=== PATIENT | male | born 1970 | race Caucasian/White ===

== ENCOUNTER 2017-05-12 05:19 | Observation (INO) | payer OTHER ==
[2017-05-12 05:24] VITALS: BMI 34.0
--- NOTE | 2017-05-12 05:32 | ED PDOC ---
Arrival/HPI - General Chief Complaint: Abdominal Pain Time Seen by Provider: 05/12/17 05:24 Historian: Patient - History of Present Illness Narrative History of Present Illness (Text): 05/12/17 05:31 Aleks Caceres is a 46 year old male who presents to the Emergency department complaining of abdominal pain. Patient states he has been experiencing LLQ pain with associated nausea and vomiting tonight. Patient denies any fever, chills, chest pain, shortness of breath, diarrhea, urinary symptoms, back pain, neck pain, headache, dizziness, or any other complaints. Symptom Onset: Gradual Symptom Course: Unchanged Activities at Onset: Light Context: Home Past Medical History - Provider Review Nursing Documentation Reviewed: Yes - Psychiatric Hx Substance Use: No - Surgical History Hx Abdominal Aortic Aneurysm Repair: No - Anesthesia Hx Anesthesia: No Family/Social History - Physician Review Nursing Documentation Reviewed: Yes Family/Social History: Unknown Family HX Smoking Status: Never Smoked Hx Alcohol Use: No Hx Substance Use: No Allergies/Home Meds Allergies/Adverse Reactions: Allergies No Known Allergies Allergy (Verified 05/12/17 05:29) Home Medications: Home Meds Medication Instructions Recorded Confirmed No Known Home Med 05/12/17 05/12/17 Review of Systems - Physician Review All systems were reviewed & negative as marked: Yes - Review of Systems Constitutional: Normal. absent: Fevers Eyes: Normal ENT: Normal Respiratory: Normal. absent: SOB, Cough Cardiovascular: Normal. absent: Chest Pain Gastrointestinal: Abdominal Pain, Nausea, Vomiting. absent: Diarrhea Genitourinary Male: Normal. absent: Dysuria, Frequency, Hematuria, Urinary Output Changes Musculoskeletal: Normal. absent: Back Pain, Neck Pain Skin: Normal. absent: Rash Neurological: Normal. absent: Headache, Dizziness Endocrine: Normal Hemo/Lymphatic: Normal Psychiatric: Normal Physical Exam Vital Signs Reviewed: Yes Vital Signs Temp Pulse Resp BP Pulse Ox 05/12/17 07:25 68 17 147/83 97 05/12/17 05:24 98.2 F 74 16 157/100 H 100 Temperature: Afebrile Blood Pressure: Normal Pulse: Regular Respiratory Rate: Normal Appearance: Positive for: Well-Appearing, Non-Toxic, Comfortable Pain Distress: None Mental Status: Positive for: Alert and Oriented X 3 - Systems Exam Head: Present: Atraumatic, Normocephalic Pupils: Present: PERRL Extroacular Muscles: Present: EOMI Conjunctiva: Present: Normal Mouth: Present: Moist Mucous Membranes Neck: Present: Normal Range of Motion Respiratory/Chest: Present: Clear to Auscultation, Good Air Exchange. No: Respiratory Distress, Accessory Muscle Use Cardiovascular: Present: Regular Rate and Rhythm, Normal S1, S2. No: Murmurs Abdomen: Present: Normal Bowel Sounds. No: Tenderness, Distention, Peritoneal Signs Back: Present: Normal Inspection Upper Extremity: Present: Normal Inspection. No: Cyanosis, Edema Lower Extremity: Present: Normal Inspection. No: Edema Neurological: Present: GCS=15, CN II-XII Intact, Speech Normal Skin: Present: Warm, Dry, Normal Color. No: Rashes Psychiatric: Present: Alert, Oriented x 3, Normal Insight, Normal Concentration Medical Decision Making ED Course and Treatment: 05/12/17 05:32 Impression: 46 year old male complaining of LLQ pain with nausea and vomiting tonight. Plan: -- CT Abdomen and Pelvis w/o contrast -- EKG -- Labs -- Urinalysis -- IV fluids -- Zofran -- Toradol -- Reassess and disposition Progress Notes: 05/12/17 05:50 reviewed radiology, NSR at [address]-segment elevations or depressions, no T -wave inversions, normal intervals. case d/w dr johnson will see on consult emergency medical tech notified 05/12/17 22:48 - Lab Interpretations Lab Results: 05/12/17 05:35 05/12/17 05:35 Lab Results 05/12/17 05:35: Sodium 141, Potassium 3.7, Chloride 105, Carbon Dioxide 26, Anion Gap 14, BUN 12, Creatinine 0.8, Est GFR ( Amer) > 60, Est GFR (Non- Af Amer) > 60, Random Glucose 166 H, Calcium 8.9, Total Bilirubin 0.6, AST 24, ALT 32, Alkaline Phosphatase 57, Total Protein 6.8, Albumin 4.1, Globulin 2.7, Albumin/Globulin Ratio 1.5 05/12/17 05:35: Urine Color Yellow, Urine Appearance Sl cloudy, Urine pH 6.0, Ur Specific [place] >= 1.030, Urine Protein 30 H, Urine Glucose (UA) Negative, Urine Ketones Negative, Urine Blood Large H, Urine Nitrate Negative, Urine Bilirubin Negative, Urine Urobilinogen 0.2, Ur Leukocyte Esterase Negative, Urine RBC Tntc, Urine WBC 0 - 2, Ur Epithelial Cells 0 - 2, Urine Bacteria Few 05/12/17 05:35: WBC 6.0, RBC 4.57, Hgb 13.3 L, Hct 38.9 L, MCV 85.1, MCH 29.1, MCHC 34.2, RDW 13.6, Plt Count 186, MPV 10.0, Gran % 85.2 H, Lymph % (Auto) 10.0 L, [place] % (Auto) 3.8, Eos % (Auto) 0.8 L, Baso % (Auto) 0.2, Gran # 5.09, Lymph # 0.6 L, [place] # 0.2, Eos # 0.1, Baso # 0.01 I have reviewed the lab results: Yes - RAD Interpretation Radiology Orders: 05/12/17 05:34 ABD & PELVIS W/O PO OR IV CONT [CT] Stat - EKG Interpretation Interpreted by ED Physician: Yes Type: 12 lead EKG - Medication Orders Current Medication Orders: Hydromorphone HCl (Dilaudid) 0.25 mg IVP Q4H PRN PRN Reason: Pain, moderate (4-7) Last Admin: 05/12/17 11:56 Dose: 0.25 mg WADE Pain Assessment Document 05/12/17 11:56 (Rec: 05/12/17 11:56 [place] [id number]) Pain Reassessment Is this a pain reassessment? Yes Sleep Is patient sleeping during reassessment? No Presence of Pain Presence of Pain Yes Pain Scale Used Pain Scale Used Numeric Location Left, Right or Bilateral Left Upper or Lower Lower Pain Location Body Site Abdomen Description Intensity of Pain at present 8 IVP Administration Document 05/12/17 11:56 (Rec: 05/12/17 11:56 [place] [id number]) Charges for Administration # of IVP Administrations 1 Re-Assess: WADE Pain Assessment Document 05/12/17 12:56 (Rec: 05/12/17 14:32 [place] [id number]) Pain Reassessment Is this a pain reassessment? Yes Sleep Is patient sleeping during reassessment? Yes Ceftriaxone Sodium (Rocephin 1 Gram Ivpb) 1 gm in 100 mls @ 100 mls/hr IVPB DAILY JOSI PRN Reason: Protocol Stop: 05/17/17 10:01 Last Admin: 05/12/17 11:05 Dose: 100 mls/hr eMAR Start Stop Document 05/12/17 11:05 Y (Rec: 05/12/17 11:08 [id number]) Intravenous Solution Start Date 05/12/17 Start Time 11:07 End Date 05/12/17 End time 12:07 Total Infusion Time 60 Sodium Chloride (Sodium Chloride 0.9%) 1,000 mls @ 150 mls/hr IV .Q6H40M JOSI Last Admin: 05/12/17 17:12 Dose: 150 mls/hr eMAR Start Stop Document 05/12/17 17:12 Y (Rec: 05/12/17 17:12 [id number] Intravenous Solution Start Date 05/12/17 Start Time 16:15 Insulin Human Regular (Humulin R Low) 0 units SC ACHS JOSI PRN Reason: Protocol Last Admin: 05/12/17 18:04 Dose: Not Given Non-Admin Reason: Blood Sugar Parameter MAR Blood Glucose Document 05/12/17 18:04 Y (Rec: 05/12/17 18:04 [id number]) Blood Glucose Finger Stick Blood Glucose (70-120) 135 Ondansetron HCl (Zofran Inj) 4 mg IVP Q4H PRN PRN Reason: Nausea/Vomiting Discontinued Medications Hydromorphone HCl (Dilaudid) 1 mg IVP STAT STA Stop: 05/12/17 06:54 Last Admin: 05/12/17 07:02 Dose: Sodium Chloride (Sodium Chloride 0.9%) 1,000 mls @ 100 mls/hr IV .Q10H STA Stop: 05/12/17 15:33 Last Admin: 05/12/17 06:18 Dose: 100 mls/hr eMAR Start Stop Document 05/12/17 06:18 RY (Rec: 05/12/17 06:18 RY [id number]) Intravenous Solution Start Date 05/12/17 Start Time 03:45 End Date 05/12/17 End time 04:45 Total Infusion Time 60 Sodium Chloride (Sodium Chloride 0.9%) 1,000 mls @ 150 mls/hr IV .Q6H40M STA Stop: 05/12/17 12:13 Last Admin: 05/12/17 07:55 Dose: 150 mls/hr eMAR Start Stop Document 05/12/17 07:55 IT (Rec: 05/12/17 07:55 IT [id number]) Intravenous Solution Start Date 05/12/17 Start Time 07:55 Ketorolac Tromethamine (Toradol) 30 mg IVP STAT STA Stop: 05/12/17 05:35 Last Admin: 05/12/17 05:45 Dose: 30 mg MAR Pain Assessment Document 05/12/17 05:45 RY (Rec: 05/12/17 06:15 RY [id number]) Pain Reassessment Is this a pain reassessment? No IVP Administration Document 05/12/17 05:45 RY (Rec: 05/12/17 06:15 RY [id number]) Charges for Administration # of IVP Administrations 1 Ketorolac Tromethamine (Toradol) 30 mg IVP ONCE ONE Stop: 05/12/17 06:27 Last Admin: 05/12/17 06:45 Dose: 30 mg MAR Pain Assessment Document 05/12/17 06:45 RY (Rec: 05/12/17 06:45 RY [id number]) Pain Reassessment Is this a pain reassessment? Yes IVP Administration Document 05/12/17 06:45 RY (Rec: 05/12/17 06:45 RY [id number]) Charges for Administration # of IVP Administrations 1 Ondansetron HCl (Zofran Inj) 4 mg IVP STAT STA Stop: 05/12/17 05:35 Last Admin: 05/12/17 05:45 Dose: 4 mg IVP Administration Document 05/12/17 05:45 RY (Rec: 05/12/17 06:15 RY [id number]) Charges for Administration # of IVP Administrations 1 - Scribe Statement The provider has reviewed the documentation as recorded by the Bitaibaura Grullon Provider Scribe Attestation: All medical record entries made by the Scribe were at my direction and personally dictated by me. I have reviewed the chart and agree that the record accurately reflects my personal performance of the history, physical exam, medical decision making, and the department course for this patient. I have also personally directed, reviewed, and agree with the discharge instructions and disposition. Disposition/Present on Arrival - Present on Arrival Any Indicators Present on Arrival: No History of DVT/PE: No History of Uncontrolled Diabetes: No Urinary Catheter: No History of Decub. Ulcer: No History Surgical Site Infection Following: None - Disposition Have Diagnosis and Disposition been Completed?: Yes Diagnosis: Renal colic on left side Disposition: HOSPITALIZED Disposition Time: 06:45 Condition: GOOD
[2017-05-12] MEDS ORDERED: Sodium Chloride 0.9% 1,000 ML IV STA ×2 (05:34→07:49)
[2017-05-12 05:57] LABS: URINE BILIRUBIN NEGATIVE (NEGATIVE); URINE BLOOD LARGE (NEGATIVE); URINE GLUCOSE (UA) NEGATIVE (NEGATIVE); URINE KETONE NEGATIVE (NEGATIVE); URINE LEUKOCYTE ESTERASE NEGATIVE Leu/uL (NEGATIVE); URINE PROTEIN 30 mg/dL (<30 mg/dL); URINE UROBILINOGEN 0.2 E.U./dL (<1 E.U./dL)
[2017-05-12 05:59] LABS: BASO # 0.01 K/mm3 (0.0-2.0); BASO % 0.2 % (0.0-3.0); EOS # 0.1 (0.0-0.7); EOS % 0.8 % (1.5-5.0); GRAN # 5.09 (1.4-6.5); GRAN % 85.2 % (50.0-68.0); HEMATOCRIT 38.9 % (42.0-52.0); LYMPH # 0.6 (1.2-3.4); MEAN CELL VOLUME 85.1 fl (80.0-105.0); MEAN CORPUSCULAR HEMOGLOBIN 29.1 pg (25.0-35.0); MEAN CORPUSCULAR HGB CONC 34.2 g/dl (31.0-37.0); MONO # 0.2 (0.1-0.6); MONO % 3.8 % (1.0-6.0); RED CELL DISTRIBUTION WIDTH 13.6 % (11.5-14.5)
[2017-05-12 06:03] LABS: ALB/GLOB RATIO 1.5 (1.1-1.8); ALKALINE PHOSPHATASE 57 U/L (38-126); ALT/SGPT 32 U/L (7-56); AST/SGOT 24 U/L (17-59); BILIRUBIN,TOTAL 0.6 mg/dL (0.2-1.3); BLOOD UREA NITROGEN 12 mg/dL (7-21); CALCIUM 8.9 mg/dL (8.4-10.5); CARBON DIOXIDE 26 mmol/L (21-33); CHLORIDE 105 mmol/L (98-107); GFR AFRICAN-AMERICAN > 60; GLUCOSE,RANDOM 166 mg/dL (70-110); POTASSIUM 3.7 mmol/L (3.6-5.0); SODIUM 141 mmol/L (132-148); TOTAL PROTEIN 6.8 g/dL (5.8-8.3)
--- NOTE | 2017-05-12 06:18 | CT ---
EXAM: CT Abdomen and Pelvis Without Intravenous Contrast CLINICAL HISTORY: 46 years old, male; Pain; Abdominal pain; Flank; Left; Additional info: Left flank pain TECHNIQUE: Axial computed tomography images of the abdomen and pelvis without intravenous contrast. All CT scans at this facility use one or more dose reduction techniques, viz.: automated exposure control; ma/kV adjustment per patient size (including targeted exams where dose is matched to indication; i.e. head); or iterative reconstruction technique. Coronal and sagittal reformatted images were created and reviewed. COMPARISON: No relevant prior studies available. FINDINGS: Lower thorax: There is minimal bibasilar atelectasis. Tiny hiatal hernia. ABDOMEN: Liver: There are no focal liver lesions present. Gallbladder and bile ducts: The gallbladder is normal. No calcified stones. No ductal dilation. Pancreas: The pancreas is normal. No ductal dilation. Spleen: The spleen is slightly large measuring 13.3 CM anteroposterior. Adrenals: The adrenal glands are normal. Kidneys and ureters: Left kidney demonstrates moderate hydronephrosis and proximal hydroureter to just beyond the UPJ where there is an obstructing 7 mm calculus on series 2, image 80. The right kidney is normal. Incidentally noted is a retroaortic left renal vein. Stomach and bowel: Stomach is partially decompressed and grossly unremarkable. Colonic constipation is present. There is no evidence of intestinal obstruction. No mucosal thickening. Appendix: A normal appendix is identified. PELVIS: Bladder: Bladder is decompressed. No stones. Reproductive: The prostate gland and seminal vesicles are normal. ABDOMEN and PELVIS: Intraperitoneal space: There is no evidence of free intraperitoneal fluid. There is no free intraperitoneal air. Bones/joints: No acute fracture. No dislocation. Soft tissues: There is a tiny fat-containing right inguinal hernia. Vasculature: The aorta is normal. Lymph nodes: There is no evidence of lymphadenopathy. IMPRESSION: Left kidney demonstrates moderate hydronephrosis and proximal hydroureter to just beyond the UPJ where there is an obstructing 7 mm calculus on series 2, image 80.
[2017-05-12 06:25] LABS: URINE APPEARANCE SL CLOUDY (CLEAR); URINE COLOR YELLOW (YELLOW)
[2017-05-12] MEDS ORDERED: HYDROmorphone 2 mg/ml ISec IVP STA (06:53)
[2017-05-12 06:54] LABS: URINE RBC TNTC /hpf (0-2)
[2017-05-12 06:55] LABS: URINE BACTERIA FEW (NEG); URINE EPITHELIAL CELLS 0 - 2 /hpf (0-5); URINE WBC 0 - 2 /hpf (0-6)
[2017-05-12] MEDS ORDERED: HYDROmorphone 1 mg/ml ISec ONE (06:57)
[2017-05-12] MEDS ORDERED: HYDROmorphone 0.5 mg/0.5 ml ISec IVP PRN (07:45)
--- NOTE | 2017-05-12 07:50 | CP.PCM.HP ---
<Keon Martinez - Last Filed: 05/12/17 07:22> History of Present Illness - History of Present Illness History of Present Illness: IM H&P for Hospitalist Service CC: Difuse abdominal pain then left-sided abd pain HPI: This is a 46 yo [place] M with PMH of pre-diabetes who presents with 2 day complaint of darkened urine and ~12 hours of diffuse abdominal pain resolving into L-sided abdominal pain. 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 No dixon hematuria reported. Beginning overnight into today, patient has been experiencing severe abdominal pain, described as sharp and diffuse initially, now sharp and left-sided abdominal/flank pain. Pain severe enough to cause nausea and 2x episodes of emesis (non-bloody non-bilious), although patient reports still able to tolerate PO fluid intake despite the nausea/emesis, and reports pain and nausea are currently well controlled in the ED (s/p Toradol, Dilaudid, and Zofran in the ED). He initially thought the pain might be a collitis, and took some old Augmentin he had at home, with no relief. Also reports that he feels like his urine flow is "slowed," but denies difficulty urinating or oliguria/anuria. Denies chest pain, shortness of breath, diarrhea, dysuria/dixon hematuria, focal weakness/paresthesia. All other ROS in 12-system review were negative. Of note, in the ED CT abd/pelvis was obtained and was notable for 7cc obstruction L-nephrolithiasis with hydronephrosis and mild hydroureter. As per the ED, Urology (Dr. Zavala) is aware of the patient, possible intervention for stone today. PMH: As above PSH: denies SHx: Denies tobacco/alcohol/illicits/IVDA FHx: Diabetes (Father), Peritoneal carcinoma (Father) PMD: None Present on Admission - Present on Admission Any Indicators Present on Admission: No History of DVT/PE: No History of Uncontrolled Diabetes: No Urinary Catheter: No Review of Systems - Review of Systems All systems: reviewed and no additional remarkable complaints except (as per HPI ) Past Patient History - Past Social History Smoking Status: Never Smoked - PSYCHIATRIC Hx Substance Use: No - SURGICAL HISTORY Hx Abdominal Aortic Aneurysm Repair: No - ANESTHESIA Hx Anesthesia: No Meds Allergies/Adverse Reactions: Allergies Allergy/AdvReac Type Severity Reaction Status Date / Time No Known Allergies Allergy Verified 05/12/17 05:29 Physical Exam - Constitutional Appears: Well, Non-toxic, No Acute Distress - Head Exam Head Exam: ATRAUMATIC, NORMAL INSPECTION, NORMOCEPHALIC - Eye Exam Eye Exam: EOMI, Normal appearance. absent: Conjunctival injection, Scleral icterus Pupil Exam: absent: Irregular, Unequal - ENT Exam ENT Exam: Mucous Membranes Moist - Neck Exam Neck exam: Positive for: Full Rom. Negative for: Lymphadenopathy, Thyromegaly - Respiratory Exam Respiratory Exam: Clear to Auscultation Bilateral, NORMAL BREATHING PATTERN. absent: Accessory Muscle Use, Chest Wall Tenderness, Decreased Breath Sounds, Rales, Rhonchi, Wheezes - Cardiovascular Exam Cardiovascular Exam: REGULAR RHYTHM, RRR, +S1, +S2. absent: Bradycardia, Tachycardia, Irregular Rhythm, JVD, +S4 - GI/Abdominal Exam GI & Abdominal Exam: Normal Bowel Sounds, Soft, Tenderness (no tenderness at time of exam, but patient had just recently received dilaudid for pain control; however patient reports sites of pain on exam pre-medication as Left upper and lower quadrants and left flank). absent: Diminished Bowel Sounds, Hyperactive Bowel Sounds, Hypoactive Bowel Sounds - Extremities Exam Extremities exam: Positive for: normal capillary refill, normal inspection, pedal pulses present. Negative for: calf tenderness, pedal edema, tenderness - Back Exam Additional comments: No CVA tenderness, but recently had been given dilaudid for pain, so possibly masking - Neurological Exam Neurological exam: Alert, CN II-XII Intact, Oriented x3 - Psychiatric Exam Psychiatric exam: Normal Affect, Normal Mood - Skin Skin Exam: Dry, Intact, Normal Color, Warm Results - Vital Signs Recent Vital Signs: Last Vital Signs Temp 98.2 F 05/12/17 05:24 Pulse 74 05/12/17 05:24 Resp 16 05/12/17 05:24 BP 157/100 H 05/12/17 05:24 Pulse Ox 100 05/12/17 05:24 - Labs Result Diagrams: 05/12/17 05:35 05/12/17 05:35 Labs: Laboratory Results - last 24 hr 05/12/17 05/12/17 05/12/17 05:35 05:35 05:35 WBC 6.0 RBC 4.57 Hgb 13.3 L Hct 38.9 L MCV 85.1 MCH 29.1 MCHC 34.2 RDW 13.6 Plt Count 186 MPV 10.0 Gran % 85.2 H Lymph % (Auto) 10.0 L [place] % (Auto) 3.8 Eos % (Auto) 0.8 L Baso % (Auto) 0.2 Gran # 5.09 Lymph # 0.6 L [place] # 0.2 Eos # 0.1 Baso # 0.01 Sodium 141 Potassium 3.7 Chloride 105 Carbon Dioxide 26 Anion Gap 14 BUN 12 Creatinine 0.8 Est GFR ( Amer) > 60 Est GFR (Non-Af Amer) > 60 Random Glucose 166 H Calcium 8.9 Total Bilirubin 0.6 AST 24 ALT 32 Alkaline Phosphatase 57 Total Protein 6.8 Albumin 4.1 Globulin 2.7 Albumin/Globulin Ratio 1.5 Urine Color Yellow Urine Appearance Sl cloudy Urine pH 6.0 Ur Specific [place] >= 1.030 Urine Protein 30 H Urine Glucose (UA) Negative Urine Ketones Negative Urine Blood Large H Urine Nitrate Negative Urine Bilirubin Negative Urine Urobilinogen 0.2 Ur Leukocyte Esterase Negative Urine RBC Tntc Urine WBC 0 - 2 Ur Epithelial Cells 0 - 2 Urine Bacteria Few Assessment & Plan - Assessment and Plan (Free Text) Assessment: This is a 46 yo [place] M with PMH of pre-diabetes who presents with 2 day complaint of darkened urine and ~12 hours of diffuse abdominal pain resolving into L-sided abdominal pain. He is being admitted for observation and possible Urology intervention for L-sided nephrolithiasis found on CT abd/pelvis. Plan: 1) Left-sided abdominal pain with nausea/emesis -Nephrolithiasis vs collitis vs diverticulitis -Attempted to self-manage suspected collitis with home Augmentin, no relief -CT abd/pelvis in ED notable for obstruction left-nephrolithiasis, 7mm; no signs of collitis or diverticulosis on CT -Nausea and emesis likely 2/2 nephrolithiasis and/or pain associated with stone ; currently controlled with pain management and Zofran -No apparent pyelonephritis, afebrile and no leukocytosis on labs, UA most notable for blood and TNTC RBCs, but given pending possible procedure and known stone, will empirically cover with rocephin 1g daily x5 days -Urology (Dr. Zavala) aware, pending possible procedure (removal vs stent) today -NPO for possible procedure, NS 150cc/hr for hydration -Dilaudid 0.25mg IV q4 PRN for pain control, Zofran 4mg IVP q4 PRN for nausea emesis -EKG in ED obtained, NSR in 60's with normal intervals and segments; Denies cardiac or smoking hx, low risk for procedure 2) Reported hx of prediabetes -glucose on admission 166 -low dose sliding scale lispro -will obtain A1c, f/u Dispo: Med/Surg obs, pending possible procedure by Urology for L-nephrolithiasis FEN: NPO for possible procedure, NS IVF 150cc/hr Access: Peripheral IV Consults: Urology Ppx: Protonix for GI, SCDs for DVT (Avoid AC pending possible procedure) Patient seen, reviewed, and discussed with attending, Dr. Moreno. Decision To Admit - Pt Status Changed To: Hospital Disposition Of: Observation - . Bed Request Type: Med/Surg <Deni Moreno A - Last Filed: 05/12/17 10:19> Results - Vital Signs Recent Vital Signs: Last Vital Signs Temp 98.2 F 05/12/17 08:43 Pulse 82 05/12/17 08:43 Resp 17 05/12/17 08:43 BP 140/82 05/12/17 08:43 Pulse Ox 98 05/12/17 08:43 - Labs Result Diagrams: 05/12/17 05:35 05/12/17 05:35 Attending/Attestation - Attestation I have personally seen and examined this patient.: Yes I have fully participated in the care of the patient.: Yes I have reviewed all pertinent clinical information: Yes Notes (Text): 05/12/17 10:08 46 year old male with past medical history of pre-diabetes who presents with complaint of hematuria and left sided flank / abdominal pain. CT abd/pelvis showed 7mm obstructing calculus with moderate hydronephrosis and proximal hydroureter. UA + for hematuria. Continue with NPO, IV fluids, analgesics, antiemetics and antibiotics. Urology evaluation requested for possible urologic procedure. Continue with insulin ss and will obtain A1c level for history of prediabetes. Deni Moreno MD Hospitalist.
--- NOTE | 2017-05-12 10:15 | CARD ---
APPROVED REPORT EKG Measurement Heart Cioy14ANUS LA 164P1 [id number] <Conclusion> Normal sinus rhythm Normal ECG
[2017-05-12] MEDS: cefTRIAXone 1 gm 1 GM/100 ML BAG IVPB SCH (11:05)
[2017-05-12] MEDS: Sodium Chloride 0.9% 1,000 ML IV SCH ×2 (17:12→22:49)
[2017-05-12] MEDS: Insulin Reg-LOW-Coverage SC SCH (18:04)
--- NOTE | 2017-05-12 21:30 | PCM.URO ---
Urology Progress Note - Objective Lab Studies: Reviewed (possible passed stone/ no pain currently/ may try out pt follow up thank you for gu consult /) Lab Results Last 24 Hours: Laboratory Results - last 24 hr 05/12/17 05/12/17 15:45 16:12 POC Glucose (mg/dL) 135 H Troponin I < 0.01 Intake & Output: Intake & Output 05/12/17 05/12/17 05/13/17 06:59 18:59 06:59 Output Total 300 Balance -300 Output: Urine 300 Urine, Voided 300 Stool 0 Other: # Voids Urine, Voided 2 Vital Signs: Vital Signs - 24 hr 05/12/17 05/12/17 05/12/17 07:25 08:43 12:58 Temperature 98.2 F Pulse Rate 68 82 Respiratory 17 17 16 Rate Blood Pressure 147/83 140/82 O2 Sat by Pulse 97 98 Oximetry 05/12/17 16:00 Temperature 98.3 F Pulse Rate 72 Respiratory 18 Rate Blood Pressure 133/85 O2 Sat by Pulse 98 Oximetry
[2017-05-13 03:24] LABS: BLOOD UREA NITROGEN 9 mg/dL (7-21); CALCIUM 7.9 mg/dL (8.4-10.5); CARBON DIOXIDE 26 mmol/L (21-33); CHLORIDE 109 mmol/L (98-107); GFR AFRICAN-AMERICAN > 60; GLUCOSE,RANDOM 106 mg/dL (70-110); POTASSIUM 3.5 mmol/L (3.6-5.0); SODIUM 142 mmol/L (132-148)
[2017-05-13 03:35] LABS: HEMATOCRIT 34.5 % (42.0-52.0); MEAN CELL VOLUME 85.8 fl (80.0-105.0); MEAN CORPUSCULAR HEMOGLOBIN 29.4 pg (25.0-35.0); MEAN CORPUSCULAR HGB CONC 34.2 g/dl (31.0-37.0); MEAN PLATELET VOLUME 9.8 fl (7.0-11.0); RED CELL DISTRIBUTION WIDTH 13.9 % (11.5-14.5); WHITE BLOOD COUNT 4.5 10^3/ul (4.5-11.0)
[2017-05-13 04:54] LABS: TROPONIN I < 0.01 ng/mL
[2017-05-13] MEDS: Sodium Chloride 0.9% 1,000 ML IV SCH (05:35)
[2017-05-13 05:46] VITALS: RESP 20; O2SAT 97
[2017-05-13 08:01] VITALS: BP 110/69; PULSE 75; TEMP 98.7
[2017-05-13] MEDS: Insulin Reg-LOW-Coverage SC SCH ×2 (08:08→11:00)
--- NOTE | 2017-05-13 08:34 | RAD ---
HISTORY: Kidney stone COMPARISON: CT of the abdomen 05/12/2017 FINDINGS: BOWEL: Normal. No obstruction. No free air. BONES: Normal. OTHER FINDINGS: None. IMPRESSION: 5 mm stone in the proximal UVJ is visible on plain film
[2017-05-13] MEDS ORDERED: Potassium Chloride 20 mEq ER Tab PO STA (09:13)
[2017-05-13] MEDS ORDERED: Potassium Chloride 20 mEq ER Tab PO ONE (09:13)
[2017-05-13] MEDS: cefTRIAXone 1 gm 1 GM/100 ML BAG IVPB SCH (11:01)
--- NOTE | 2017-05-13 15:26 | CP.PCM.DIS ---
<Bethel Richmond - Last Filed: 05/14/17 14:01> Provider - Provider Date of Admission: 05/12/17 06:48 Attending physician: Anshul Abel MD Primary care physician: None Consults: Urology: Dr. Cheney Time Spent in preparation of Discharge (in minutes): 25 Diagnosis - Discharge Diagnosis (1) Renal colic on left side Status: Acute Hospital Course - Lab Results Lab Results: Most Recent Lab Values WBC 4.5 10^3/ul (4.5-11.0) D 05/13/17 03:00 RBC 4.02 10^6/uL (3.5-6.1) 05/13/17 03:00 Hgb 11.8 g/dL (14.0-18.0) L 05/13/17 03:00 Hct 34.5 % (42.0-52.0) L 05/13/17 03:00 MCV 85.8 fl (80.0-105.0) 05/13/17 03:00 MCH 29.4 pg (25.0-35.0) 05/13/17 03:00 MCHC 34.2 g/dl (31.0-37.0) 05/13/17 03:00 RDW 13.9 % (11.5-14.5) 05/13/17 03:00 Plt Count 164 10^3/uL (120.0-450.0) 05/13/17 03:00 MPV 9.8 fl (7.0-11.0) 05/13/17 03:00 Gran % 85.2 % (50.0-68.0) H 05/12/17 05:35 Lymph % (Auto) 10.0 % (22.0-35.0) L 05/12/17 05:35 [place] % (Auto) 3.8 % (1.0-6.0) 05/12/17 05:35 Eos % (Auto) 0.8 % (1.5-5.0) L 05/12/17 05:35 Baso % (Auto) 0.2 % (0.0-3.0) 05/12/17 05:35 Gran # 5.09 (1.4-6.5) 05/12/17 05:35 Lymph # 0.6 (1.2-3.4) L 05/12/17 05:35 [place] # 0.2 (0.1-0.6) 05/12/17 05:35 Eos # 0.1 (0.0-0.7) 05/12/17 05:35 Baso # 0.01 K/mm3 (0.0-2.0) 05/12/17 05:35 Sodium 142 mmol/L (132-148) 05/13/17 03:00 Potassium 3.5 mmol/L (3.6-5.0) L 05/13/17 03:00 Chloride 109 mmol/L (98-107) H 05/13/17 03:00 Carbon Dioxide 26 mmol/L (21-33) 05/13/17 03:00 Anion Gap 11 (10-20) 05/13/17 03:00 BUN 9 mg/dL (7-21) 05/13/17 03:00 Creatinine 0.8 mg/dL (0.8-1.5) 05/13/17 03:00 Est GFR ( Amer) > 60 05/13/17 03:00 Est GFR (Non-Af Amer) > 60 05/13/17 03:00 POC Glucose (mg/dL) 108 mg/dL (65-110) 05/13/17 07:03 Random Glucose 106 mg/dL (70-110) 05/13/17 03:00 Hemoglobin A1c 5.7 % (4.2-6.5) 05/12/17 13:35 Calcium 7.9 mg/dL (8.4-10.5) L 05/13/17 03:00 Total Bilirubin 0.6 mg/dL (0.2-1.3) 05/12/17 05:35 AST 24 U/L (17-59) 05/12/17 05:35 ALT 32 U/L (7-56) 05/12/17 05:35 Alkaline Phosphatase 57 U/L (38-126) 05/12/17 05:35 Troponin I < 0.01 ng/mL 05/13/17 03:00 Total Protein 6.8 g/dL (5.8-8.3) 05/12/17 05:35 Albumin 4.1 g/dL (3.0-4.8) 05/12/17 05:35 Globulin 2.7 gm/dL 05/12/17 05:35 Albumin/Globulin Ratio 1.5 (1.1-1.8) 05/12/17 05:35 Urine Color Yellow (YELLOW) 05/12/17 05:35 Urine Appearance Sl cloudy (CLEAR) 05/12/17 05:35 Urine pH 6.0 (4.7-8.0) 05/12/17 05:35 Ur Specific [place] >= 1.030 (1.005-1.035) 05/12/17 05:35 Urine Protein 30 mg/dL (<30 mg/dL) H 05/12/17 05:35 Urine Glucose (UA) Negative mg/dL (NEGATIVE) 05/12/17 05:35 Urine Ketones Negative mg/dL (NEGATIVE) 05/12/17 05:35 Urine Blood Large (NEGATIVE) H 05/12/17 05:35 Urine Nitrate Negative (NEGATIVE) 05/12/17 05:35 Urine Bilirubin Negative (NEGATIVE) 05/12/17 05:35 Urine Urobilinogen 0.2 E.U./dL (<1 E.U./dL) 05/12/17 05:35 Ur Leukocyte Esterase Negative Robert/uL (NEGATIVE) 05/12/17 05:35 Urine RBC Tntc /hpf (0-2) 05/12/17 05:35 Urine WBC 0 - 2 /hpf (0-6) 05/12/17 05:35 Ur Epithelial Cells 0 - 2 /hpf (0-5) 05/12/17 05:35 Urine Bacteria Few (NEG) 05/12/17 05:35 - Hospital Course Hospital Course: Patient is a 46 year old Spanish male with past medical history of pre-diabetes who presented with a two day history of darkened urine and left sided abdominal pain. The patient was evaluated in the ED and abdomen and pelvis CT was done showing left renal hydronephrosis and proximal hydroureter to just beyond the UPJ with an obstructing 7mm calculus. Dr.Elliot Cheney with urology was consulted and evaluated the patient. The patient was hydrated and given appropriate pain management. After initiation of treatment the patient was noted to have diminishment of his left sided abdominal discomfort as well as urinary complaints. It was proposed by urology that the patient had passed the stone from the UVJ and was advised to follow up outpatient. The patient was evaluated and found to have been hemodynamically stable and appropriate for discharge with outpatient follow up with the [facility] clinic and Urology with Dr. Cheney. - Date & Time of H&P Date of H&P: 05/12/17 Time of H&P: 07:22 Discharge Exam - Head Exam Head Exam: ATRAUMATIC, NORMAL INSPECTION, NORMOCEPHALIC - Eye Exam Eye Exam: EOMI, PERRL - Respiratory Exam Respiratory Exam: Clear to PA & Lateral, NORMAL BREATHING PATTERN - Cardiovascular Exam Cardiovascular Exam: REGULAR RHYTHM, RRR, +S1, +S2. absent: Rubs, Systolic Murmur - GI/Abdominal Exam GI & Abdominal Exam: Normal Bowel Sounds, Tenderness (mild left lower quadrant, clinically improved from admission), Unremarkable. absent: Distended, Guarding , Rigid - Extremities Exam Extremities exam: full ROM, normal inspection - Back Exam Back exam: NORMAL INSPECTION - Neurological Exam Neurological exam: Alert, CN II-XII Intact, Normal Gait, Oriented x3 - Psychiatric Exam Psychiatric exam: Normal Affect, Normal Mood - Skin Skin Exam: Dry, Intact, Normal Color, Warm Discharge Plan - Discharge Medications Prescriptions: Tamsulosin [Flomax] 0.4 mg PO DAILY 14 Days #14 cap - Follow Up Plan Condition: GOOD Disposition: HOME/ ROUTINE Instructions: Kidney Stones (DC), Renal Colic (GEN), Basic Carbohydrate Counting (DC), Prediabetes (DC) Additional Instructions: 1. Follow up with [facility] clinic for PMD follow up and established care 2. Follow up with Urologist Dr. Cheney within one week 3. Take medications as prescribed to you 4. Return to the ED if your symptoms worsen or return 5. Keep hydrated by drinking at least 2 Liters of fluid daily Referrals: Edson Cheney MD [Staff Provider] - <Anshul Abel - Last Filed: 05/14/17 14:31> Provider - Provider Date of Admission: 05/12/17 06:48 Attending physician: Anshul Abel MD Hospital Course - Lab Results Lab Results: Most Recent Lab Values WBC 4.5 10^3/ul (4.5-11.0) D 05/13/17 03:00 RBC 4.02 10^6/uL (3.5-6.1) 05/13/17 03:00 Hgb 11.8 g/dL (14.0-18.0) L 05/13/17 03:00 Hct 34.5 % (42.0-52.0) L 05/13/17 03:00 MCV 85.8 fl (80.0-105.0) 05/13/17 03:00 MCH 29.4 pg (25.0-35.0) 05/13/17 03:00 MCHC 34.2 g/dl (31.0-37.0) 05/13/17 03:00 RDW 13.9 % (11.5-14.5) 05/13/17 03:00 Plt Count 164 10^3/uL (120.0-450.0) 05/13/17 03:00 MPV 9.8 fl (7.0-11.0) 05/13/17 03:00 Gran % 85.2 % (50.0-68.0) H 05/12/17 05:35 Lymph % (Auto) 10.0 % (22.0-35.0) L 05/12/17 05:35 [place] % (Auto) 3.8 % (1.0-6.0) 05/12/17 05:35 Eos % (Auto) 0.8 % (1.5-5.0) L 05/12/17 05:35 Baso % (Auto) 0.2 % (0.0-3.0) 05/12/17 05:35 Gran # 5.09 (1.4-6.5) 05/12/17 05:35 Lymph # 0.6 (1.2-3.4) L 05/12/17 05:35 [place] # 0.2 (0.1-0.6) 05/12/17 05:35 Eos # 0.1 (0.0-0.7) 05/12/17 05:35 Baso # 0.01 K/mm3 (0.0-2.0) 05/12/17 05:35 Sodium 142 mmol/L (132-148) 05/13/17 03:00 Potassium 3.5 mmol/L (3.6-5.0) L 05/13/17 03:00 Chloride 109 mmol/L (98-107) H 05/13/17 03:00 Carbon Dioxide 26 mmol/L (21-33) 05/13/17 03:00 Anion Gap 11 (10-20) 05/13/17 03:00 BUN 9 mg/dL (7-21) 05/13/17 03:00 Creatinine 0.8 mg/dL (0.8-1.5) 05/13/17 03:00 Est GFR ( Amer) > 60 05/13/17 03:00 Est GFR (Non-Af Amer) > 60 05/13/17 03:00 POC Glucose (mg/dL) 108 mg/dL (65-110) 05/13/17 07:03 Random Glucose 106 mg/dL (70-110) 05/13/17 03:00 Hemoglobin A1c 5.7 % (4.2-6.5) 05/12/17 13:35 Calcium 7.9 mg/dL (8.4-10.5) L 05/13/17 03:00 Total Bilirubin 0.6 mg/dL (0.2-1.3) 05/12/17 05:35 AST 24 U/L (17-59) 05/12/17 05:35 ALT 32 U/L (7-56) 05/12/17 05:35 Alkaline Phosphatase 57 U/L (38-126) 05/12/17 05:35 Troponin I < 0.01 ng/mL 05/13/17 03:00 Total Protein 6.8 g/dL (5.8-8.3) 05/12/17 05:35 Albumin 4.1 g/dL (3.0-4.8) 05/12/17 05:35 Globulin 2.7 gm/dL 05/12/17 05:35 Albumin/Globulin Ratio 1.5 (1.1-1.8) 05/12/17 05:35 Urine Color Yellow (YELLOW) 05/12/17 05:35 Urine Appearance Sl cloudy (CLEAR) 05/12/17 05:35 Urine pH 6.0 (4.7-8.0) 05/12/17 05:35 Ur Specific [place] >= 1.030 (1.005-1.035) 05/12/17 05:35 Urine Protein 30 mg/dL (<30 mg/dL) H 05/12/17 05:35 Urine Glucose (UA) Negative mg/dL (NEGATIVE) 05/12/17 05:35 Urine Ketones Negative mg/dL (NEGATIVE) 05/12/17 05:35 Urine Blood Large (NEGATIVE) H 05/12/17 05:35 Urine Nitrate Negative (NEGATIVE) 05/12/17 05:35 Urine Bilirubin Negative (NEGATIVE) 05/12/17 05:35 Urine Urobilinogen 0.2 E.U./dL (<1 E.U./dL) 05/12/17 05:35 Ur Leukocyte Esterase Negative Robert/uL (NEGATIVE) 05/12/17 05:35 Urine RBC Tntc /hpf (0-2) 05/12/17 05:35 Urine WBC 0 - 2 /hpf (0-6) 05/12/17 05:35 Ur Epithelial Cells 0 - 2 /hpf (0-5) 05/12/17 05:35 Urine Bacteria Few (NEG) 05/12/17 05:35 Attending/Attestation - Attestation I have personally seen and examined this patient.: Yes I have fully participated in the care of the patient.: Yes I have reviewed all pertinent clinical information, including history, physical exam and plan: Yes Notes (Text): 05/14/17 14:31 Patient was seen and examined with medical laboratory manager. Agreed with resident assessment and plan. Management plan was discussed in detail with patient Education was provided.
== END 2017-05-13 14:13 | disposition home or self-care (01) ==
LOC: ED 05:19 → ERH 06:48 → 5RNO 08:37
PROVIDERS: ADMIT Hospitalist; ATTEND Internal Medicine
DX: N13.2 Hydronephrosis with renal and ureteral calculous obstruction (principal); R73.03 Prediabetes
CPT/HCPCS: 36415; 74022; 74176; 80048; 80053; 81001; 82948; 83036; 84484; 85025; 85027; 93005; 96361; 96365; 96375; 96376; 99282; G0378; J0696; J1170; J1885; J2405; J7040

== ENCOUNTER 2017-05-15 14:00 | Day surgery (SDC) | payer OTHER ==
[2017-05-15] MEDS ORDERED: Sodium Chloride 0.9% 1,000 ML IV STA (15:46)
[2017-05-15 16:22] LABS: BASO # 0.01 K/mm3 (0.0-2.0); BASO % 0.2 % (0.0-3.0); EOS # 0.1 (0.0-0.7); EOS % 0.8 % (1.5-5.0); GRAN # 4.85 (1.4-6.5); GRAN % 80.6 % (50.0-68.0); LYMPH # 0.7 (1.2-3.4); LYMPH % 11.8 % (22.0-35.0); MEAN CELL VOLUME 85.4 fl (80.0-105.0); MEAN CORPUSCULAR HEMOGLOBIN 29.9 pg (25.0-35.0); MEAN PLATELET VOLUME 9.7 fl (7.0-11.0); MONO # 0.4 (0.1-0.6); MONO % 6.6 % (1.0-6.0); RED CELL DISTRIBUTION WIDTH 13.7 % (11.5-14.5); URINE BILIRUBIN NEGATIVE (NEGATIVE); URINE BLOOD LARGE (NEGATIVE); URINE GLUCOSE (UA) NEGATIVE (NEGATIVE); URINE KETONE NEGATIVE (NEGATIVE); URINE LEUKOCYTE ESTERASE NEGATIVE Leu/uL (NEGATIVE); URINE PROTEIN NEGATIVE mg/dL (<30 mg/dL); URINE UROBILINOGEN 0.2 E.U./dL (<1 E.U./dL)
[2017-05-15 16:25] LABS: URINE APPEARANCE SL CLOUDY (CLEAR); URINE COLOR YELLOW (YELLOW)
[2017-05-15 16:33] LABS: URINE BACTERIA FEW (NEG)
[2017-05-15 16:49] LABS: ALB/GLOB RATIO 1.4 (1.1-1.8); ALKALINE PHOSPHATASE 62 U/L (38-126); ALT/SGPT 31 U/L (7-56); AST/SGOT 27 U/L (17-59); BILIRUBIN,TOTAL 0.9 mg/dL (0.2-1.3); BLOOD UREA NITROGEN 13 mg/dL (7-21); CALCIUM 9.7 mg/dL (8.4-10.5); CARBON DIOXIDE 26 mmol/L (21-33); CHLORIDE 103 mmol/L (98-107); GFR AFRICAN-AMERICAN > 60; GLUCOSE,RANDOM 125 mg/dL (70-110); LIPASE 51 U/L (23-300); MAGNESIUM 1.9 mg/dL (1.7-2.2); SODIUM 138 mmol/L (132-148); TOTAL PROTEIN 7.5 g/dL (5.8-8.3)
--- NOTE | 2017-05-15 17:04 | ED PDOC ---
Arrival/HPI - General Chief Complaint: Back Pain Time Seen by Provider: 05/15/17 15:13 Historian: Patient - History of Present Illness Narrative History of Present Illness (Text): 05/15/17 16:58 A 46 year old male presents to the emergency department complaining of recurrent left sided abdominal pain. Patient was seen on 05/12/17 for left sided abdominal/flank pain and found to have a 7mm obstructive ureteral stone. Patient was hospitalized and discharged since his pain resolved. He was evaluated by Dr. Cheney and instructed to follow up outpatient. But the patient returned instead, currently complaining of left sided abdominal pain with a stinging urinary sensation. Patient continues to take flomax but no pain medication. Patient denies any fever, chills, nausea, vomiting, chest pain, shortness of breath or any other complaints. Time/Duration: Prior to Arrival Symptom Course: Unchanged Quality: Other Context: Other Past Medical History - Provider Review Nursing Documentation Reviewed: Yes - Reproductive Currently : No - Cardiac Hx Cardiac Disorders: No - Pulmonary Hx Respiratory Disorders: No - Neurological Hx Neurological Disorder: No - HEENT Hx HEENT Disorder: No - Renal Hx Renal Disorder: Yes Hx Kidney Stones: Yes - Endocrine/Metabolic Hx Endocrine Disorders: No - Hematological/Oncological Hx Blood Disorders: No - Integumentary Hx Dermatological Disorder: No - Musculoskeletal/Rheumatological Hx Musculoskeletal Disorders: No Hx Falls: No - Gastrointestinal Hx Gastrointestinal Disorders: No - Genitourinary/Gynecological Hx Genitourinary Disorders: No - Psychiatric Hx Psychophysiologic Disorder: No Hx Substance Use: No - Surgical History Hx Abdominal Aortic Aneurysm Repair: No - Anesthesia Hx Anesthesia: No Family/Social History - Physician Review Nursing Documentation Reviewed: Yes Family/Social History: No Known Family HX Smoking Status: Never Smoked Hx Alcohol Use: No Hx Substance Use: No Allergies/Home Meds Allergies/Adverse Reactions: Allergies No Known Allergies Allergy (Verified 05/15/17 14:14) Review of Systems - Physician Review All systems were reviewed & negative as marked: Yes - Review of Systems Constitutional: absent: Fevers, Night Sweats Respiratory: absent: SOB Cardiovascular: absent: Chest Pain Gastrointestinal: Abdominal Pain. absent: Nausea, Vomiting Genitourinary Male: Dysuria (stinging sensation) Physical Exam Vital Signs Reviewed: Yes Vital Signs Temp Pulse Resp BP Pulse Ox 05/15/17 16:16 65 18 135/79 99 05/15/17 14:11 98.1 F 67 16 138/85 99 Temperature: Afebrile Blood Pressure: Normal Pulse: Regular Respiratory Rate: Normal Appearance: Positive for: Well-Appearing, Non-Toxic, Comfortable Pain Distress: None Mental Status: Positive for: Alert and Oriented X 3 - Systems Exam Head: Present: Atraumatic, Normocephalic Pupils: Present: PERRL Conjunctiva: Present: Normal Mouth: Present: Moist Mucous Membranes Pharnyx: Present: Normal. No: ERYTHEMA, EXUDATE Neck: Present: Normal Range of Motion Respiratory/Chest: Present: Clear to Auscultation, Good Air Exchange. No: Respiratory Distress, Accessory Muscle Use Cardiovascular: Present: Regular Rate and Rhythm, Normal S1, S2. No: Murmurs Abdomen: Present: Tenderness (Mild lateral LLQ tenderness ), Normal Bowel Sounds. No: Distention, Peritoneal Signs, Rebound, Guarding Back: Present: Normal Inspection. No: CVA Tenderness Upper Extremity: Present: Normal Inspection, NORMAL PULSES. No: Cyanosis, Edema Lower Extremity: Present: Normal Inspection, NORMAL PULSES. No: Edema, CALF TENDERNESS Neurological: Present: GCS=15, CN II-XII Intact, Speech Normal Skin: Present: Warm, Dry, Normal Color. No: Rashes Psychiatric: Present: Alert, Oriented x 3, Normal Insight, Normal Concentration Medical Decision Making ED Course and Treatment: 05/15/17 16:58 Impression: A 46 year old male with left sided abdominal pain and dysuria with known L side ureteral stone Plan: -- Labs -- Urinalysis -- Toradol and IV fluids -- Reassess and disposition Progress Notes: 05/15/17 17:38 Patient with noted history; case was discussed with Dr. Cheney who advised the patient be kept NPO with a plan for a ureteral stent. - Lab Interpretations Lab Results: 05/15/17 16:10 05/15/17 16:10 Lab Results 05/15/17 16:10: Sodium 138, Potassium 4.0, Chloride 103, Carbon Dioxide 26, Anion Gap 13, BUN 13, Creatinine 0.7 L, Est GFR ( Amer) > 60, Est GFR ( Non-Af Amer) > 60, Random Glucose 125 H, Calcium 9.7, Magnesium 1.9, Total Bilirubin 0.9, AST 27, ALT 31, Alkaline Phosphatase 62, Total Protein 7.5, Albumin 4.4, Globulin 3.1, Albumin/Globulin Ratio 1.4, Lipase 51 05/15/17 16:10: Urine Color Yellow, Urine Appearance Sl cloudy, Urine pH 6.0, Ur Specific [place] <= 1.005, Urine Protein Negative, Urine Glucose (UA) Negative, Urine Ketones Negative, Urine Blood Large H, Urine Nitrate Negative, Urine Bilirubin Negative, Urine Urobilinogen 0.2, Ur Leukocyte Esterase Negative , Urine RBC 2 - 5, Urine WBC 1 - 3, Ur Epithelial Cells 3 - 4, Urine Bacteria Few 05/15/17 16:10: WBC 6.0 D, RBC 4.92, Hgb 14.7 D, Hct 42.0, MCV 85.4, MCH 29.9 , MCHC 35.0, RDW 13.7, Plt Count 202, MPV 9.7, Gran % 80.6 H, Lymph % (Auto) 11.8 L, [place] % (Auto) 6.6 H, Eos % (Auto) 0.8 L, Baso % (Auto) 0.2, Gran # 4.85 , Lymph # 0.7 L, [place] # 0.4, Eos # 0.1, Baso # 0.01 05/15/17 15:55: PT 12.0, INR 1.10 H, APTT 29.0 I have reviewed the lab results: Yes - Medication Orders Current Medication Orders: Discontinued Medications Sodium Chloride (Sodium Chloride 0.9%) 1,000 mls @ 999 mls/hr IV .Q1H1M STA Stop: 05/15/17 16:46 Last Admin: 05/15/17 15:58 Dose: 999 mls/hr eMAR Start Stop Document 05/15/17 15:58 SF (Rec: 05/15/17 15:58 SF [facility] [id number]) Intravenous Solution Start Date 05/15/17 Start Time 15:58 End Date 05/15/17 End time 16:59 Total Infusion Time 61 Ketorolac Tromethamine (Toradol) 30 mg IVP STAT STA Stop: 05/15/17 15:47 Last Admin: 05/15/17 16:12 Dose: 30 mg MAR Pain Assessment Document 05/15/17 16:12 SF (Rec: 05/15/17 16:12 SF [facility] [id number]) Pain Reassessment Is this a pain reassessment? Yes Sleep Is patient sleeping during reassessment? No Presence of Pain Presence of Pain Yes IVP Administration Document 05/15/17 16:12 SF (Rec: 05/15/17 16:12 SF [facility] [id number]) Charges for Administration # of IVP Administrations 1 - Scribe Statement The provider has reviewed the documentation as recorded by the Scribe Kerry Apple Provider Scribe Attestation: All medical record entries made by the Scribe were at my direction and personally dictated by me. I have reviewed the chart and agree that the record accurately reflects my personal performance of the history, physical exam, medical decision making, and the department course for this patient. I have also personally directed, reviewed, and agree with the discharge instructions and disposition. Disposition/Present on Arrival - Present on Arrival Any Indicators Present on Arrival: No History of DVT/PE: No History of Uncontrolled Diabetes: No Urinary Catheter: No History of Decub. Ulcer: No History Surgical Site Infection Following: None - Disposition Have Diagnosis and Disposition been Completed?: Yes Diagnosis: Left ureteral calculus Disposition: HOSPITALIZED Disposition Time: 16:45 Patient Plan: Other (same day surgery) Condition: STABLE
[2017-05-15 17:07] LABS: INR 1.1 (0.93-1.08)
[2017-05-15] MEDS ORDERED: cefTRIAXone (Rocephin) 1 gm Inj ONE (17:28)
[2017-05-15] MEDS ORDERED: Lidocaine 2% Jelly (Uro-Jet) ONE (17:28)
[2017-05-15] MEDS ORDERED: Propofol 10 mg/ml Inj (20 ML) ONE (18:38)
[2017-05-15] MEDS: Iohexol 240 (50 ml) ONE (19:08)
[2017-05-15] MEDS ORDERED: Oxycodone/Acetaminophen 5/325 mg Tab PO PRN (19:25)
[2017-05-15] MEDS: Sodium Chloride 0.9% 1,000 ML IV SCH (21:07)
[2017-05-16 01:24] VITALS: RESP 20; BMI 30.8
[2017-05-16] MEDS: Sodium Chloride 0.9% 1,000 ML IV SCH (04:54)
[2017-05-16 08:33] VITALS: BP 118/73; PULSE 69; TEMP 97.3; O2SAT 97
[2017-05-16] MEDS ORDERED: Influenza Vaccine 60 mcg/0.5 mL SYR (4YR UP) IM ONE (10:41)
--- NOTE | 2017-05-16 14:22 | RAD ---
PROCEDURE: Fluoroscopy up to 1 hour HISTORY: RETROGRADE PYELOGRAM / STENT INSERTION / (LEFT) COMPARISON: TECHNIQUE: Fluoroscopy was provided in the operating room. 64.2 seconds. Twelve images were submitted. FINDINGS: There is placement of a left ureteral stent IMPRESSION: As above
== END 2017-05-16 13:03 | disposition home or self-care (01) ==
LOC: ED 14:00 → SDS 16:45 → OR 16:45 → 5RNO 20:00 → SDS 05-16 13:03
PROVIDERS: ATTEND Urology
DX: N20.1 Calculus of ureter (principal); R30.0 Dysuria
CPT/HCPCS: 52332; 76000; 80053; 81001; 83690; 83735; 85025; 85610; 85730; 90471; 90674; 96361; 96374; 99285; C1758; C1769; C2625; J0696; J1885; J2405; J2704; J3010; J7040 ×2; J7120; Q9966